=== PATIENT | female | born 1945 | race Caucasian/White ===

== ENCOUNTER 2018-12-20 00:55 | Emergency (ER) | payer MEDICARE, OTHER ==
[~2018-12-20] VITALS: Ht 149.9 cm; Wt 70.5 kg
[~2018-12-20 00:55] MED LIST: ASPI-817 PO; ATOR10TA65 PO; CARV6.25 PO; CARV6.2579 PO; CHOL2000 PO; DIGO125T PO; FISH1CAP PO; FLORANEX PO; FOLI-49 PO; LEVO112T57 PO; NORT75CA4 PO; PANT40TA4 PO; PRED5SOL6 PO; QUET100T32 PO
[2018-12-20 01:15] VITALS: Ht 149.9 cm; Wt 70.5 kg
[2018-12-20 01:33] VITALS: BP 130/90; PULSE 97; RESP 16
--- NOTE | 2018-12-20 02:38 | ERD ---
ER Documentation Chief Complaint Chief Complaint Slip/Fall no KO, fell to a sit position w/skin tears on the L leg/L arm. HPI This is a 73-year-old female with history of Alin's who presents with skin tears to her left barajas, and left forearm after mechanical fall. Patient with known fell. She did not have any loss of consciousness, she was able to ambulate afterwards, she does not complain of any neck pain, she is able to move her arms and legs. ROS All systems reviewed and are negative except as per history of present illness. Medications Home Meds Active Scripts Lactobacillus Acidoph/Bulgaricus* (Floranex*) 1 Tab Chew, 1 TAB PO Q8 for 14 Days Prov:EMILY CHACON CERTIFIED RETINAL ANGIOGRAPHER 06/08/14 Carvedilol* (Coreg*) 6.25 Mg Tab, 6.25 MG PO BID for 30 Days Prov:EMILY CHACON CERTIFIED RETINAL ANGIOGRAPHER 06/08/14 Reported Medications Carvedilol* (Carvedilol*) 6.25 Mg Tablet, 6.25 MG PO BID, TAB 09/23/14 Atorvastatin Calcium (Atorvastatin Calcium) 10 Mg Tab, 10 MG PO HS, TAB 09/23/14 Prednisolone* (Prednisolone*) 5 Mg/5 Ml Solution, 10 MG PO DAILY, ML 09/23/14 Aspirin* (Aspirin* EC) 81 Mg Tablet.dr, 81 MG PO DAILY, TAB 09/23/14 Nortriptyline Hcl* (Pamelor*) 75 Mg Capsule, 75 MG PO HS, CAP 05/21/14 Cholecalciferol* (Vitamin D3*) 2,000 Unit Cap, 2000 UNIT PO DAILY, CAP 05/21/14 Digoxin* (Digoxin*) 0.125 Mg Tab, 0.125 MG PO 2X/WEEK, TAB 05/21/14 Levothyroxine Sodium* (Levothyroxine Sodium*) 112 Mcg Tablet, 112 MCG PO AC BREAKFAST, TAB 05/21/14 Fish Oil/Dha/Epa (FISH OIL 1,200 MG FISH OIL) 1 Each Capsule, 2 EACH PO BID WITH MEALS 01/08/14 Folic Acid* (Folic Acid*) 1 Mg Tablet, 1 MG PO DAILY, TAB 01/08/14 Quetiapine Fumarate* (Quetiapine Fumarate*) 100 Mg Tablet, 100 MG PO HS 12/24/13 Pantoprazole (Protonix) 40 Mg Tabec, 40 MG PO DAILY 12/24/13 Allergies Allergies: Coded Allergies: ciprofloxacin (Verified Allergy, Severe, 05/21/14) RASHES PMhx/Soc History of Surgery: Yes (RIGHT FISTULA,PERMACATH, LEFT ARM PICC) Anesthesia Reaction: No Hx Neurological Disorder: No Hx Respiratory Disorders: No Hx Cardiac Disorders: Yes (HTN) Hx Psychiatric Problems: No Hx Miscellaneous Medical Probl: Yes (CKD, Wagners Disease) Hx Alcohol Use: No Hx Substance Use: No Hx Tobacco Use: No Smoking Status: Never smoker Physical Exam Vitals Vital Signs Date Temp Pulse Resp B/P (MAP) Pulse Ox O2 O2 Flow FiO2 Time Delivery Rate 12/20/18 97.7 97 16 130/90 97 Room Air 01:33 (103) 12/20/18 97.7 97 16 130/90 97 01:15 (103) Physical Exam Const: Well-appearing, nontoxic Head: Atraumatic, no scalp hematomas, no facial trauma Eyes: Normal conjunctiva ENT: Normal external ears, nose and mouth. Neck: No midline tenderness no step- off Resp: Normal respiratory effort Cardio: Abd: Skin: Back: Ext: There is superficial skin tears noted to the elbows and barajas, there is no bony tenderness, there is full range of motion of all extremities, strength is 5 out of 5, sensation intact light touch, pulses are intact distally Neur: Awake and alert Psych: Normal mood and affect Procedures/MDM 73-year-old female presents for evaluation of mechanical fall, on exam patient is well-appearing and nontoxic, and in no distress. X-rays of the elbow and tib-fib were negative for acute findings, she had no evidence of head or neck trauma, her abrasions were dressed, she had no lacerations requiring primary repair, at discharge patient was in no distress. Departure Diagnosis: Primary Impression: Fall Encounter type: initial encounter Qualified Codes: W19.XXXA - Unspecified fall, initial encounter Additional Impression: Skin tear Condition: Stable Patient Instructions: Abrasion, Fall Prevention Additional Instructions: Call your primary care doctor TOMORROW for an appointment during the next 2-3 days.See the doctor sooner or return here if your condition worsens before your appointment time. ANNITA BARCENAS MD December 20, 2018 02:38
[2018-12-20] MEDS ORDERED: ACETAMINOPHEN 325 MG TAB ONE (03:20)
[2018-12-20] MEDS ORDERED: ACETAMINOPHEN 325 MG TAB PO ONE (03:30)
== END 2018-12-20 03:57 | disposition home or self-care (01) ==
LOC: E/R 00:55
DX: S51.812A Laceration without foreign body of left forearm, initial encounter (principal); I12.9 Hypertensive chronic kidney disease with stage 1 through stage 4 chronic kidney disease, or unspecified chronic kidney disease; N18.9 Chronic kidney disease, unspecified; S81.812A Laceration without foreign body, left lower leg, initial encounter; W01.0XXA Fall on same level from slipping, tripping and stumbling without subsequent striking against object, initial encounter; Y92.9 Unspecified place or not applicable; Z79.82 Long term (current) use of aspirin
CPT/HCPCS: 73070; 73590